=== PATIENT | male | born 1975 | race African-American/Black ===

== ENCOUNTER 2022-12-31 23:59 | Emergency (ER) | payer SELFPAY ==
[2023-01-01] MEDS ORDERED: Dicyclomine 10 MG Cap PO ONE ×2 (00:26→01:16)
[2023-01-01] MEDS ORDERED: Ondansetron 4 MG Tab.DIS PO ONE ×2 (00:26→01:16)
[2023-01-01] MEDS ORDERED: Metoclopramide 10 MG Tab PO ONE (01:18)
== END 2023-01-01 01:47 | disposition home or self-care (01) ==
LOC: JD.ED 23:59
DX: K29.00 Acute gastritis without bleeding (principal); K21.9 Gastro-esophageal reflux disease without esophagitis; Z79.899 Other long term (current) drug therapy; Z88.0 Allergy status to penicillin
CPT/HCPCS: 74018; 99284; A9270; 99283

== ENCOUNTER 2023-09-21 00:07 | Emergency (ER) | payer SELFPAY ==
[2023-09-21] MEDS ORDERED: Sodium Chloride 0.9% 10 ML Syringe FLUSH PRN (00:13)
[2023-09-21 00:19] LABS: BASOPHILS PERCENT AUTO 0.4 % (0.0-1.0); EOSINOPHILS ABSOLUTE AUTO 0.1 K/mm3 (0.0-0.4); EOSINOPHILS PERCENT AUTO 1.4 % (0.0-6.0); HEMATOCRIT 39.3 % (42.0-52.0); HEMOGLOBIN 13.6 gm/dl (14.0-18.0); IMMATURE GRAN ABSOLUTE AUTO 0.03 K/mm3 (0.00-0.05); IMMATURE GRAN PERCENT AUTO 0.3 % (0.0-0.4); LYMPHOCYTES ABSOLUTE AUTO 3.5 K/mm3 (1.0-4.8); LYMPHOCYTES PERCENT AUTO 37.2 % (24.0-44.0); MEAN CORPUSCULAR HEMOGLOBIN 32.7 pg (28.0-32.0); MEAN CORPUSCULAR HGB CONC 34.6 g/dl (32.0-36.0); MEAN CORPUSCULAR VOLUME 94.5 fl (83.0-99.0); MEAN PLATELET VOLUME 9.8 fl (9.4-12.4); MONOCYTES ABSOLUTE AUTO 0.6 K/mm3 (0.0-0.8); MONOCYTES PERCENT AUTO 6.5 % (0.0-8.0); NEUTROPHILS ABSOLUTE AUTO 5.1 K/mm3 (1.8-7.7); NEUTROPHILS PERCENT AUTO 54.2 % (41.0-71.0); PLATELET COUNT,PLT 164 K/mm3 (150-400); RED BLOOD CELL COUNT 4.16 M/mm3 (4.52-5.90); WHITE BLOOD CELL COUNT,WBC 9.41 K/mm3 (3.9-11.3)
[2023-09-21] MEDS: Ondansetron 4 MG/2 ML SDV IVPUSH ONE (00:20)
[2023-09-21] MEDS: Ketorolac 30 MG/ML SDV IVPUSH ONE (00:20)
[2023-09-21] MEDS: Sodium Chloride 0.9% 1,000 ML IV SCH (00:20)
[2023-09-21] MEDS: HYDROmorphone 1 MG/ML Syringe IVPUSH ONE (00:21)
[2023-09-21 00:40] LABS: A/G RATIO 1.3 (1-2); ALANINE AMINOTRANSFERASE,ALT 30 U/L (16-63); ALBUMIN 3.7 g/dl (3.4-5.0); ALKALINE PHOSPHATASE 97 U/L (46-116); ANION GAP 14.2 (5-15); ASPARTATE AMNIOTRANSFERASE,AST 28 U/L (15-37); BILIRUBIN TOTAL 0.3 mg/dL (0.2-1.0); BLOOD UREA NITROGEN,BUN 20 mg/dL (7-18); BUN/CREATININE RATIO 12.5 (14-18); CALCIUM 8.6 mg/dL (8.5-10.1); CARBON DIOXIDE,CO2 26 mEq/L (21-32); CHLORIDE,CL 105 mEq/L (98-107); CREATININE 1.6 mg/dL (0.7-1.3); ESTIMATED GFR 52 mL/min (>60); GLUCOSE RANDOM 125 mg/dL (70-99); LIPASE 82 U/L (16-77); PROTEIN TOTAL,TP 6.5 g/dl (6.4-8.2); SODIUM,NA 141 mEq/L (136-145)
[2023-09-21 00:44] LABS: POTASSIUM,K 4.2 mEq/L (3.5-5.1)
[2023-09-21] MEDS: HYDROmorphone 0.5 MG/0.5 ML Syringe IVPUSH ONE (01:14)
[2023-09-21 02:59] LABS: APPEARANCE,URINE SLT CLOUDY (Clear); BILIRUBIN,URINE NEGATIVE (Negative); COLOR,URINE YELLOW (Yellow); GLUCOSE,URINE NEGATIVE (Negative); KETONES,URINE NEGATIVE (Negative); LEUKOCYTE ESTERASE,URINE NEGATIVE (Negative); NITRITE,URINE NEGATIVE (Negative); OCCULT BLOOD,URINE 3+ (Negative); PROTEIN,URINE 2+ (Negative); UROBILINOGEN,URINE 0.2 (0.2-1.0)
[2023-09-21 03:22] LABS: RBC,URINE >100 /hpf (0-5); WBC,URINE 0-5 /hpf (0-5)
[2023-09-21 03:23] LABS: BACTERIA,URINE FEW /hpf (FEW); EPITHELIAL CELLS,URINE 0-5 /hpf (0-5); MUCUS,URINE NOT SEEN /hpf (FEW)
== END 2023-09-21 03:15 | disposition home or self-care (01) ==
LOC: JD.ED 00:07
DX: N20.2 Calculus of kidney with calculus of ureter (principal); F17.210 Nicotine dependence, cigarettes, uncomplicated; Z88.0 Allergy status to penicillin
CPT/HCPCS: 36415; 74176; 80053; 81001; 83690; 85025; 96361; 96374; 96375; 96376; 99285; J1170; J1885; J2405; J7030; 99284

== ENCOUNTER 2023-12-03 21:33 | Emergency (ER) | payer SELFPAY ==
[2023-12-03] MEDS: Doxycycline Monohydrate 100 MG Cap PO ONE (22:16)
== END 2023-12-03 22:38 | disposition home or self-care (01) ==
LOC: JD.ED 21:33
DX: R07.89 Other chest pain (principal); J45.909 Unspecified asthma, uncomplicated; F17.210 Nicotine dependence, cigarettes, uncomplicated; Z86.16 Personal history of COVID-19; Z88.0 Allergy status to penicillin; Z91.048 Other nonmedicinal substance allergy status
CPT/HCPCS: 99284; A9270; 93010; 99283

== ENCOUNTER 2024-01-15 01:44 | Emergency (ER) | payer SELFPAY ==
[2024-01-15 02:25] LABS: BASOPHILS PERCENT AUTO 0.5 % (0.0-1.0); EOSINOPHILS ABSOLUTE AUTO 0.2 K/mm3 (0.0-0.4); EOSINOPHILS PERCENT AUTO 3.1 % (0.0-6.0); HEMATOCRIT 40.5 % (42.0-52.0); IMMATURE GRAN ABSOLUTE AUTO 0.01 K/mm3 (0.00-0.05); IMMATURE GRAN PERCENT AUTO 0.1 % (0.0-0.4); LYMPHOCYTES ABSOLUTE AUTO 3.4 K/mm3 (1.0-4.8); LYMPHOCYTES PERCENT AUTO 44.4 % (24.0-44.0); MEAN CORPUSCULAR HEMOGLOBIN 32.6 pg (28.0-32.0); MEAN CORPUSCULAR HGB CONC 34.6 g/dl (32.0-36.0); MEAN CORPUSCULAR VOLUME 94.2 fl (83.0-99.0); MEAN PLATELET VOLUME 9.9 fl (9.4-12.4); MONOCYTES ABSOLUTE AUTO 0.6 K/mm3 (0.0-0.8); MONOCYTES PERCENT AUTO 7.5 % (0.0-8.0); NEUTROPHILS ABSOLUTE AUTO 3.4 K/mm3 (1.8-7.7); NEUTROPHILS PERCENT AUTO 44.4 % (41.0-71.0); PLATELET COUNT,PLT 240 K/mm3 (150-400); WHITE BLOOD CELL COUNT,WBC 7.65 K/mm3 (3.9-11.3)
[2024-01-15] MEDS ORDERED: Naloxone 0.4 MG/ML SDV IVPUSH PRN (02:43)
[2024-01-15 02:56] LABS: A/G RATIO 1.2 (1-2); ANION GAP 12.6 (5-15); BILIRUBIN TOTAL 0.5 mg/dL (0.2-1.0); BUN/CREATININE RATIO 9.5 (14-18); EST CRCL DRUG DOSING (CG) 42.75 mL/min; POTASSIUM,K 3.6 mEq/L (3.5-5.1); PROTEIN TOTAL,TP 7.4 g/dl (6.4-8.2)
[2024-01-15] MEDS: HYDROmorphone 0.5 MG/0.5 ML Syringe IVPUSH ONE (03:18)
[2024-01-15] MEDS: Sodium Chloride 0.9% 10 ML Syringe FLUSH PRN (03:19)
[2024-01-15] MEDS: Sodium Chloride 0.9% 1,000 ML IV ONE (04:15)
[2024-01-15 04:42] LABS: APPEARANCE,URINE CLEAR (Clear); BILIRUBIN,URINE NEGATIVE (Negative); COLOR,URINE YELLOW (Yellow); GLUCOSE,URINE NEGATIVE (Negative); KETONES,URINE NEGATIVE (Negative); LEUKOCYTE ESTERASE,URINE NEGATIVE (Negative); NITRITE,URINE NEGATIVE (Negative); OCCULT BLOOD,URINE NEGATIVE (Negative); PH,URINE 6.5 (5.0-8.0); PROTEIN,URINE NEGATIVE (Negative); UROBILINOGEN,URINE 0.2 (0.2-1.0)
[2024-01-15] MEDS: methylPREDNISolone Sodium Succinate 125 MG/2 ML SDV IVPUSH ONE (06:14)
[2024-01-15] MEDS: Ketorolac 15 MG/ML SDV IVPUSH ONE (08:28)
[2024-01-15] MEDS ORDERED: LORazepam 2 MG/ML SDV IVPUSH ONE (12:32)
[2024-01-15] MEDS: HYDROmorphone 1 MG/ML Syringe IVPUSH ONE (12:43)
== END 2024-01-15 13:00 | disposition home or self-care (01) ==
LOC: JD.ED 01:44
DX: R10.32 Left lower quadrant pain (principal); J45.909 Unspecified asthma, uncomplicated; F17.210 Nicotine dependence, cigarettes, uncomplicated; Z86.16 Personal history of COVID-19; Z88.0 Allergy status to penicillin; Z91.048 Other nonmedicinal substance allergy status; Z79.2 Long term (current) use of antibiotics
CPT/HCPCS: 36415; 72131; 74176; 80053; 81003; 85025; 96361; 96374; 96375; 96376; 99285; J1171; J1885; J2919; J3490; J7030

== ENCOUNTER 2024-01-30 16:12 | Emergency (ER) | payer SELFPAY ==
[2024-01-30 17:35] LABS: BASOPHILS PERCENT AUTO 0.6 % (0.0-1.0); EOSINOPHILS ABSOLUTE AUTO 0.1 K/mm3 (0.0-0.4); EOSINOPHILS PERCENT AUTO 1.4 % (0.0-6.0); HEMATOCRIT 36.6 % (42.0-52.0); HEMOGLOBIN 13.2 gm/dl (14.0-18.0); IMMATURE GRAN ABSOLUTE AUTO 0.01 K/mm3 (0.00-0.05); IMMATURE GRAN PERCENT AUTO 0.2 % (0.0-0.4); MEAN CORPUSCULAR HEMOGLOBIN 33.7 pg (28.0-32.0); MEAN CORPUSCULAR HGB CONC 36.1 g/dl (32.0-36.0); MEAN CORPUSCULAR VOLUME 93.4 fl (83.0-99.0); MEAN PLATELET VOLUME 10.1 fl (9.4-12.4); MONOCYTES ABSOLUTE AUTO 0.4 K/mm3 (0.0-0.8); MONOCYTES PERCENT AUTO 6.8 % (0.0-8.0); NEUTROPHILS ABSOLUTE AUTO 3.9 K/mm3 (1.8-7.7); PLATELET COUNT,PLT 181 K/mm3 (150-400); RED BLOOD CELL COUNT 3.92 M/mm3 (4.52-5.90); WHITE BLOOD CELL COUNT,WBC 6.48 K/mm3 (3.9-11.3)
[2024-01-30 17:57] LABS: A/G RATIO 1.1 (1-2); ALBUMIN 3.5 g/dl (3.4-5.0); ANION GAP 12.4 (5-15); BILIRUBIN TOTAL 0.7 mg/dL (0.2-1.0); BUN/CREATININE RATIO 13.1 (14-18); C-REACTIVE PROTEIN 0.07 mg/dL (<0.30); CALCIUM 8.6 mg/dL (8.5-10.1); CREATININE 1.3 mg/dL (0.7-1.3); EST CRCL DRUG DOSING (CG) 67.98 mL/min; POTASSIUM,K 3.4 mEq/L (3.5-5.1); PROTEIN TOTAL,TP 6.6 g/dl (6.4-8.2)
== END 2024-01-30 19:00 | disposition home or self-care (01) ==
LOC: JD.ED 16:12
DX: I80.8 Phlebitis and thrombophlebitis of other sites (principal); L03.113 Cellulitis of right upper limb; F17.210 Nicotine dependence, cigarettes, uncomplicated; Z91.048 Other nonmedicinal substance allergy status; Z88.0 Allergy status to penicillin; Z86.16 Personal history of COVID-19
CPT/HCPCS: 36415; 80053; 85025; 86140; 93971-26-RT; 93971-RT; 99284

== ENCOUNTER 2024-02-14 11:40 | Emergency (ER) | payer SELFPAY ==
[2024-02-14 14:19] LABS: APPEARANCE,URINE SLT CLOUDY (Clear); BILIRUBIN,URINE NEGATIVE (Negative); COLOR,URINE YELLOW (Yellow); GLUCOSE,URINE NEGATIVE (Negative); KETONES,URINE NEGATIVE (Negative); LEUKOCYTE ESTERASE,URINE NEGATIVE (Negative); NITRITE,URINE NEGATIVE (Negative); OCCULT BLOOD,URINE NEGATIVE (Negative); PROTEIN,URINE 1+ (Negative); UROBILINOGEN,URINE 0.2 (0.2-1.0)
[2024-02-14 14:34] LABS: BACTERIA,URINE FEW /hpf (FEW); EPITHELIAL CELLS,URINE 0-5 /hpf (0-5); HYALINE CASTS,URINE 30-40 /lpf (0-5); MUCUS,URINE MODERATE /hpf (FEW); RBC,URINE 0-5 /hpf (0-5); WBC,URINE 0-5 /hpf (0-5)
[2024-02-14 15:13] LABS: BASOPHILS PERCENT AUTO 0.5 % (0.0-1.0); EOSINOPHILS ABSOLUTE AUTO 0.1 K/mm3 (0.0-0.4); EOSINOPHILS PERCENT AUTO 1.7 % (0.0-6.0); HEMATOCRIT 38.7 % (42.0-52.0); HEMOGLOBIN 13.1 gm/dl (14.0-18.0); IMMATURE GRAN ABSOLUTE AUTO 0.01 K/mm3 (0.00-0.05); IMMATURE GRAN PERCENT AUTO 0.2 % (0.0-0.4); LYMPHOCYTES ABSOLUTE AUTO 2.4 K/mm3 (1.0-4.8); MEAN CORPUSCULAR HEMOGLOBIN 32.8 pg (28.0-32.0); MEAN CORPUSCULAR HGB CONC 33.9 g/dl (32.0-36.0); MEAN CORPUSCULAR VOLUME 96.8 fl (83.0-99.0); MEAN PLATELET VOLUME 9.4 fl (9.4-12.4); MONOCYTES ABSOLUTE AUTO 0.4 K/mm3 (0.0-0.8); MONOCYTES PERCENT AUTO 6.3 % (0.0-8.0); NEUTROPHILS ABSOLUTE AUTO 3.5 K/mm3 (1.8-7.7); NEUTROPHILS PERCENT AUTO 54.3 % (41.0-71.0); PLATELET COUNT,PLT 180 K/mm3 (150-400); WHITE BLOOD CELL COUNT,WBC 6.49 K/mm3 (3.9-11.3)
[2024-02-14 15:29] LABS: ANION GAP 12.4 (5-15); BUN/CREATININE RATIO 11.3 (14-18); CALCIUM 8.9 mg/dL (8.5-10.1); CREATININE 1.5 mg/dL (0.7-1.3); EST CRCL DRUG DOSING (CG) 58.92 mL/min; POTASSIUM,K 4.4 mEq/L (3.5-5.1)
== END 2024-02-14 17:20 | disposition home or self-care (01) ==
LOC: JD.ED 11:40
DX: R10.32 Left lower quadrant pain (principal); J45.909 Unspecified asthma, uncomplicated; Z86.16 Personal history of COVID-19; Z88.0 Allergy status to penicillin; Z91.048 Other nonmedicinal substance allergy status
CPT/HCPCS: 36415; 74176; 74176-26; 80048; 81001; 85025; 99284

== ENCOUNTER 2024-11-09 12:37 | Emergency (ER) | payer SELFPAY ==
[2024-11-09 17:31] LABS: APPEARANCE,URINE CLEAR (Clear)
[2024-11-09 17:32] LABS: GLUCOSE,URINE NEGATIVE (Negative); OCCULT BLOOD,URINE NEGATIVE (Negative)
[2024-11-09 17:36] LABS: EPITHELIAL CELLS,URINE 0-5 /hpf (0-5)
[2024-11-09 18:52] LABS: C. TRACHOMATIS BY PCR NOT DETECTED; N. GONORRHOEAE BY PCR NOT DETECTED
== END 2024-11-09 16:14 | disposition home or self-care (01) ==
LOC: JD.ED 12:37
DX: M25.561 Pain in right knee (principal); Z91.048 Other nonmedicinal substance allergy status; Z88.0 Allergy status to penicillin; Z86.16 Personal history of COVID-19
CPT/HCPCS: 81001; 87491; 87591; 93971-26-RT; 93971-RT; 99283; 99284

== ENCOUNTER 2024-11-23 19:28 | Emergency (ER) | payer SELFPAY ==
[2024-11-23] MEDS: Diphtheria,Pertussis(Acell),Tetanus Vaccine 0.5 ML Syringe IM ONE (19:59)
== END 2024-11-23 21:18 | disposition home or self-care (01) ==
LOC: JD.ED 19:28
DX: S61.211A Laceration without foreign body of left index finger without damage to nail, initial encounter (principal); Z23 Encounter for immunization; Z91.048 Other nonmedicinal substance allergy status; Z88.0 Allergy status to penicillin; Z86.16 Personal history of COVID-19; W26.0XXA Contact with knife, initial encounter; Y93.89 Activity, other specified
CPT/HCPCS: 12001; 90471; 90715; 99282; J2003; 99283